=== PATIENT | male | born 1985 | race African-American/Black ===

== ENCOUNTER 2023-03-04 01:02 | Emergency (ER) | payer SELFPAY ==
[~2023-03-04] VITALS: Ht 177.8 cm; Wt 106.0 kg
[2023-03-04] MEDS ORDERED: CYCLOBENZAPRINE10 MG PO (04:30)
[2023-03-04] MEDS ORDERED: ULTRAM50 MG PO (04:30)
[2023-03-04 07:00] VITALS: BP 158/99
== END 2023-03-04 07:00 | disposition home or self-care (01) | DRG 552 ==
LOC: ED 01:02
DX: M47.816 Spondylosis without myelopathy or radiculopathy, lumbar region (principal); I10 Essential (primary) hypertension